=== PATIENT | male | born 1990 | race Caucasian/White ===

== ENCOUNTER → 2018-12-27 | Outpatient (REF) | payer OTHER | LOC: M SFHCLERA 18:00 | PROVIDERS: ATTEND Nurse Practitioner Family | DX: J02.9 Acute pharyngitis, unspecified (principal) ==

== ENCOUNTER → 2020-04-02 | Outpatient (CLI) | payer OTHER | LOC: M LABSMTC 11:12 | PROVIDERS: ATTEND Anesthesiology | DX: Z01.812 Encounter for preprocedural laboratory examination (principal); Z20.822 Contact with and (suspected) exposure to COVID-19 ==

== ENCOUNTER 2020-04-07 06:55 | Day surgery (SDC) | payer OTHER ==
[~2020-04-07] VITALS: Ht 170.2 cm; Wt 66.0 kg
[~2020-04-07 06:55] MED LIST: LIDOCAINE 1% MDV 20ML VIAL SQ PRN
[2020-04-07] MEDS ORDERED: fentaNYL 100 MCG/2 ML INJECTION (J3010) IV PRN ×2 (07:01→11:35)
[2020-04-07] MEDS ORDERED: ceFAZolin 2 GM/D5W 50 ML IV BAG (J0690 PER 500MG) As Ordered ONE (07:23)
[2020-04-07] MEDS ORDERED: LIDOCAINE 1% MDV 20ML VIAL XX ONE (07:30)
[2020-04-07] MEDS ORDERED: ceFAZolin SOD 2 GM in IV 1 EA IV ONE (07:30)
[2020-04-07] MEDS ORDERED: dexameTHASONE 10MG/1ML VIAL PRES.FREE (J1100 PER 1MG) XX ONE (07:30)
[2020-04-07] MEDS ORDERED: LR 1,000 ML IV ONE (07:30)
[2020-04-07] MEDS ORDERED: BUPIVACAINE HCL 0.5% 30 ML VIAL As Ordered ONE (07:46)
[2020-04-07] MEDS: MIDAZOLAM INJ 2MG/2ML VIAL (J2250 PER 1MG) IV PRN ×2 (07:57→08:01)
[2020-04-07] MEDS ORDERED: BUPIVACAINE HCL 0.5% 30 ML VIAL XX ONE (08:00)
[2020-04-07] MEDS ORDERED: LIDOCAINE 2% 100MG/5ML SDV (FOR ANES.) As Ordered ONE (08:13)
[2020-04-07] MEDS ORDERED: ONDANSETRON 4MG/2ML VIAL As Ordered ONE (08:13)
[2020-04-07] MEDS ORDERED: propofoL 200 MG/20 ML VIAL As Ordered ONE (08:13)
[2020-04-07] MEDS ORDERED: MIDAZOLAM INJ 2MG/2ML VIAL (J2250 PER 1MG) As Ordered ONE (08:13)
[2020-04-07] MEDS ORDERED: KETOROLAC 60MG 2ML VIAL As Ordered ONE (08:13)
[2020-04-07] MEDS ORDERED: ROCURONIUM BROMIDE 50 MG/5 ML VIAL As Ordered ONE ×2 (08:13→09:18)
[2020-04-07] MEDS ORDERED: ACETAMINOPHEN 1000MG 100ML IV BTL (OFIRMEV) (J0131 PER 10MG) As Ordered ONE (08:13)
[2020-04-07] MEDS ORDERED: dexameTHASONE 4 MG/ML 1ML VIAL (J1100 PER 1MG) As Ordered ONE (08:13)
[2020-04-07] MEDS ORDERED: SUGAMMADEX SODIUM 500 MG/5 ML VIAL (BRIDION) As Ordered ONE (08:13)
[2020-04-07] MEDS ORDERED: fentaNYL 100 MCG/2 ML INJECTION (J3010) As Ordered ONE (08:14)
[2020-04-07] MEDS ORDERED: EPINEPHrine 1MG/ML INJ 30ML MD-VIAL As Ordered ONE (08:23)
[2020-04-07] MEDS ORDERED: ONDANSETRON 4MG/2ML VIAL IV PRN ×2 (11:35→11:40)
[2020-04-07] MEDS ORDERED: LR 1,000 ML IV SCH ×2 (11:35→11:40)
[2020-04-07] MEDS ORDERED: HYDROMORPHONE HCL 0.5 MG/ 0.5 ML SYRINGE (J1170 PER 1) IV PRN (11:35)
[2020-04-07] MEDS ORDERED: oxyCODONE 5MG TAB PO PRN (11:35)
[2020-04-07] MEDS ORDERED: MORPHINE 2 MG/ML 1ML VIAL (J2270) IV PRN (11:40)
[2020-04-07] MEDS ORDERED: ACETAMINOPHEN TAB 650MG DOSE (2X325MG) PO PRN (11:40)
[2020-04-07] MEDS ORDERED: PERCOCET 5MG/325MG TAB PO PRN (11:40)
[2020-04-07 13:25] VITALS: BP 136/82
--- NOTE | 2020-04-07 15:29 | RO ---
OPERATIVE NOTE DATE OF OPERATION: 04/07/2020 PREOPERATIVE DIAGNOSIS: Left shoulder instability. POSTOPERATIVE DIAGNOSIS: Left shoulder instability plus SLAP tear. PLANNED PROCEDURE: Left shoulder arthroscopic stabilization, subpectoral biceps tenodesis. PROCEDURE PERFORMED: Left shoulder arthroscopic stabilization, subpectoral biceps tenodesis. SURGEON: Kofi Handy MD DIRECTOR LIFE SCIENCES: ANESTHESIOLOGIST: Dr. Wan. ANESTHESIA: General anesthetic plus block. OPERATIVE PREAMBLE: A 29-year-old man with multiple episodes of instability of his left shoulder. The shoulder comes in and out. We discussed the pros, cons, risks, benefits of going ahead with arthroscopic stabilization and subpectoral biceps tenodesis. He wished to proceed. We marked the left upper extremity and proceeded to surgery after a preoperative block. DESCRIPTION OF PROCEDURE: The patient was brought to the operating theater, administered general anesthetic. He was placed in left lateral decubitus. An axillary roll was placed. All bony prominences were padded. Two grams of IV Ancef were administered prior to the start of the case. The left upper extremity was prepped and draped in the usual sterile fashion with a chlorhexidine based prep solution, allowing over three minutes prep solution drying time prior to draping. 10 lb of traction was used with the arm in 45 degrees of abduction. A preoperative timeout was performed to confirm the site, the patient and the surgery. I began by making standard posterior and anterior arthroscopy portals. I used 7 mm and 8.25 mm cannulas posterior to the biceps tendon exposed just superior to the subscapularis tendon through the rotator interval. There was a large tear that included the superior labrum down to the 6 o'clock position in the anterior labrum. This also extended into the posterosuperior area but not beyond the equator. The undersurface of the rotator cuff tendon appeared normal. The glenoid cartilage appeared normal. There was some minor scuffing of the humeral cartilage, grade 1. This was gently debrided using a shaving instrument. There was a very large shallow Hill-Sachs lesion posteriorly. No loose body. I began by elevating the labrum. Using a shaving instrument, I created bleeding surface of bone anteriorly as well as posteriorly. I then inserted a posterior cannula 8.25 mm over a switching stick. I placed the scope anteriorly to fully examine the tear. Again, I performed gentle debridement. I used a PEEK SutureTak knotless anchor 3 x 12.7 mm posterosuperiorly and then used a curved instrument, passed a nitinol wire and then passed a stitch in the standard fashion just superior to the posterosuperior labrum. I then used three 2.9 x 12.5 mm biocomposite PushLock anchors at the low 5:50, 4:30 and 3:30 positions on the anterior glenoid with a locking loop FiberTape labrum tape suture, secured this down, cut the suture short. I then performed a biceps tenotomy intra-articularly. Arthroscopic pictures were taken and saved onto the system. I then turned my attention to performing a subpectoral biceps tenodesis. I made a small one inch incision over the long head of the biceps anteromedially at the proximal humerus. I carried dissection down through skin and subcutaneous tissue, achieved meticulous hemostasis. I protected the saphenous vein, retracted that laterally. I worked through the interval, protected with upward pressure on the deltoid muscle. I identified the long head of the biceps. This was delivered through the incision. I used Arthrex #2 FiberLoops, sutured five locking loops to perform five whipstitches in the tendon, cut the suture at this place, cut off about 2.5 cm of the distal end of the biceps and then passed the sutures through the Arthrex button system in a standard slide position technique. I then passed one FiberLink suture on the undersurface for later passage. I used the spade-tip drill bit at the biceps groove bicortically. I over-reamed the near cortex with a 7 mm reamer. I irrigated any bone dust and then passed the button bicortically, pulling on each end until I delivered the biceps into the bony tunnel. I used the FiberLink suture to then pass one suture limb, secured the biceps again and then five interrupted half-hitches and cut the sutures short. I thoroughly irrigated the wound. The subcutaneous tissue was closed with interrupted 2-0 Vicryl sutures and the skin with 3-0 Monocryl and Steri-Strips. Adaptic, 4x8 gauze and ABD dressing was then placed with cloth tape and the patient's upper extremity in a sling. The patient was transferred off the operating table and taken to postanesthetic unit in stable condition. All sponge, instrument, and needle counts were correct. No complications. Estimated blood loss: 50 mL. Plan is for the patient to be pendulum exercises only. Followup in two weeks' time. He may be discharged home according to day surgery criteria. Prescriptions will be sent to the pharmacy of choice with appropriate narcotic counseling.
== END 2020-04-07 13:33 | disposition home or self-care (01) ==
LOC: M SDC 06:55
PROVIDERS: ATTEND Orthopaedic Surgery Sports Medicine
DX: M25.312 Other instability, left shoulder (principal); S43.432A Superior glenoid labrum lesion of left shoulder, initial encounter; Y92.89 Other specified places as the place of occurrence of the external cause; Y93.9 Activity, unspecified; X58.XXXA Exposure to other specified factors, initial encounter; Y99.9 Unspecified external cause status; F17.220 Nicotine dependence, chewing tobacco, uncomplicated
CPT/HCPCS: 23430; 29807; 64415; C1713; J0131; J0690; J1100; J1885; J2250; J2405; J3010